=== PATIENT | female | born 2000 | race Two or more races ===

== ENCOUNTER 2025-08-27 23:37 | Emergency (ER) | payer MEDICAID, SELFPAY ==
[2025-08-27 23:38] VITALS: BMI 33.2
[2025-08-28] VITALS (8 sets, daily range): BP systolic 109–157; BP diastolic 66–83; PULSE 55–80; RESP 15–20; TEMP 36.7–37; O2SAT 97–100
--- NOTE | 2025-08-28 | XR_ITS ---
MRI abdomen, without contrast. MRCP Date and time of exam: 08/28/2025 11:14 a.m. CLINICAL HISTORY: Rule out common bile duct stone, epigastric pain nausea and vomiting for 4 days, enlarged common bile duct seen on recent ultrasound of the right upper quadrant Technique: Multiple axial and coronal images of the abdomen have been obtained with the Siemens 1.5T MRI scanner. Images obtained included T1 weighted transverse images, T2-weighted transverse images, T2-weighted transverse images fat-suppressed, T2 weighted haste fat suppressed transverse images, T1 weighted images, in and out of phase images, T2-weighted coronal images, breath hold, T2 weighted haze coronal images as well as T2 weighted coronal thick slab images, MRCP. Findings: Maximum diameter of the extrahepatic common bile duct on today's study measures 7.4 mm. By my measurement, the common bile duct on the previous ultrasound study only measured 7.8 mm, I believe that the technologist measured the common bile duct diameter obliquely suggesting a larger diameter. The gallbladder does appear mildly definitely enlarged, transverse diameter measures 5 cm there appears to be dependent layering biliary sludge in the gallbladder. In the distal common bile duct, there are 2 exquisitely tiny filling defects noted. These are suspicious for 2 tiny common bile duct stones. Left the MRI appearance of the liver and spleen and right and left kidneys and pancreas is otherwise normal. Likewise the spine and spinal canal appear essentially normal. IMPRESSION: 1. There is abnormal dilatation of the gallbladder, and there is a definite dependent layer of biliary sludge noted in the gallbladder. 2. Common bile duct by my measurement is 7.4 mm. 3 findings as noted above are suggestive of 2 probable very tiny stones in the distal common bile duct. I have marked these with arrows on numerous images
--- NOTE | 2025-08-28 00:54 | XR_ITS ---
Examination: Retroperitoneal ultrasound, complete Technique: Multiple high resolution grayscale images of the retroperitoneum obtained, including kidneys and bladder. Exam date and time: August 28, 2025, 0237 hours INDICATION: Right-sided flank pain abdominal pain beginning 4 days ago. FINDINGS: Right kidney 11.7 cm renal cortex 1.7 cm Minimal dilatation of the pelvicalyceal system Left kidney 11.3 cm in the cortex 2.0 cm No renal calculi No bladder mass or bladder calculi, bladder prevoid volume 99 cc IMPRESSION: Minimal dilatation left renal calyces, consider left urinary tract infection No renal calculi
--- NOTE | 2025-08-28 00:54 | XR_ITS ---
Examination: Abdomen sonogram, Limited Date and time of exam: August 28, 2025, 0230 hours INDICATIONS: Abdominal pain right-sided flank pain beginning 4 days ago. Technique: Real-time goldstein scale transabdominal sonographic images of the upper abdomen obtained. Findings: Gallbladder sludge No gallstones Normal gallbladder wall 0.2 cm Abnormal enlargement common bile duct 10 mm no definite stones Pancreatic head 2.4 cm Liver 18.5 cm smooth contour No focal liver lesions Normal hepatopetal portal venous flow Patent IVC IMPRESSION: Negative for cholelithiasis, negative for cholecystitis Abnormal enlargement common bile duct 10 mm, suggest MRCP follow-up
--- NOTE | 2025-08-28 00:55 | PD.EDRME ---
Rapid Medical Screening Exam RME Arrival date/time: 08/27/25 23:37 This is a case of 24-year-old female with no medical history came in in the emergency room due to bilateral upper abdominal pain radiating to both flank with nausea vomiting Chief Complaint: Abdominal Pain Time Seen by Provider: 08/27/25 23:49 Vital signs: Vital Signs Temperature 98.3 F 08/28/25 00:39 Pulse Rate 80 08/28/25 00:39 Respiratory Rate 20 08/28/25 00:39 Blood Pressure 157/79 H 08/28/25 00:39 Pulse Oximetry (%) 97 08/28/25 00:39 Oxygen Delivery Method Room Air 08/28/25 00:39 Exam: Both upper abdominal pain tenderness no guarding no rebound no rigidity Clinical Impression: Abdominal pain
[2025-08-28 01:27] LABS: Basophils # (Auto) 0.1 Thou/mm3 (0.0-0.2); Basophils % (Auto) 1 % (0-2.5); Eosinophils # (Auto) 0.0 Thou/mm3 (0.0-0.5); Eosinophils % (Auto) 1 % (0-10); Hematocrit 37.4 % (36.0-46.0); Hemoglobin 12.6 g/dL (12.0-16.0); Immature Granulocytes Auto 0.03 Thou/mm3 (0.00-0.00); Lymphocytes # (Auto) 1.2 Thou/mm3 (1.0-4.8); Lymphocytes % (Auto) 14 % (10-50); Mean Corpuscular HGB Conc 33.7 g/dl (31.0-37.0); Mean Corpuscular Hemoglobin 31.8 pg (25.0-35.0); Mean Corpuscular Volume 94 fL (80-100); Monocytes # (Auto) 0.7 Thou/mm3 (0.0-0.8); Monocytes % (Auto) 8 % (0-12); Neutrophils # (Auto) 6.4 Thou/mm3 (1.8-7.7); Neutrophils % (Auto) 76 % (37-80); Nucleated Red Blood Cell # 0.00 Thou/mm3 (0.00-0.00); Nucleated Red Blood Cell % 0 /100 WBC (0); Platelet Count 206 Thou/mm3 (140-440); RDW Standard Deviation 42.6 fL (36.4-46.3); Red Blood Count 3.96 Miln/mm3 (4.00-5.20); White Blood Count 8.4 Thou/mm3 (3.6-11.0)
[2025-08-28 01:49] LABS: Alanine Aminotransferase 240 U/L (10-49); Albumin, Serum 4.8 gm/dL (3.5-5.0); Albumin/Globulin Ratio 1.8 (1.2-2.2); Alkaline Phosphatase 230 U/L (46-116); Anion Gap 11 (7-16); Aspartate Amino Transferase 160 U/L (0-34); BUN/Creatinine Ratio 14 Ratio (12-20); Bilirubin,Total 1.8 mg/dL (0.3-1.2); Blood Urea Nitrogen 10 mg/dL (9-23); Calcium 9.0 mg/dL (8.3-10.6); Calcium (Corrected) 9.0 mg/dL (8.5-10.1); Carbon Dioxide 25.4 mMol/L (20.0-31.0); Chloride 105 mMol/L (98-107); Creatinine (Component) 0.7 mg/dL (0.6-1.3); Estimated Creatinine Clearance 154.9 mL/min (>60); Globulin 2.7 gm/dL (2.3-3.5); Glucose 111 mg/dL (74-106); Lipase 29 U/L (12-53); Osmolality,Calculated 281 (275-295); Potassium 3.8 mMol/L (3.4-5.1); Sodium 141 mMol/L (136-145); Total Protein 7.5 gm/dL (5.7-8.2); eGFR > 60 See Note
[2025-08-28 01:59] LABS: Collection Type, Urine Clean Catch
[2025-08-28 02:06] LABS: Amorphous Crystals,Urine Present (Absent); Bilirubin,Urine 1+ (Negative); Blood,Urine 1+ (Negative); Clarity,Urine Clear (Clear/Hazy); Color,Urine Yellow (Lt Yel-Yel); Glucose, Urine Negative (Negative); Ketones,Urine Negative (Negative); Leukocyte Esterase,Urine Negative (Negative); Nitrite,Urine Negative (Negative); PH,Urine 5.5 (5.0-7.0); Protein,Urine Trace (Neg - Trace); RBC,Urine 12 /hpf (0-3); Specific Gravity,Urine 1.031 (1.001-1.035); Squamous Epithelial Cell,Urine 1 /hpf (0-5); Urobilinogen,Urine 3.0 mg/dL (0.0-1.0); WBC,Urine 5 /hpf (0-5)
[2025-08-28 02:07] LABS: HCG Qualitative,Urine Negative
--- NOTE | 2025-08-28 03:26 | PRELIM_ITS ---
Gallbladder ultrasound. August 28, 2025 0230 hours Clinical history: abd pain Comparison: No prior study is available for comparison. Findings: The visualized liver is normal in echogenicity without mass or ductal dilatation. The main portal vein is patent and demonstrates hepatopetal flow. There is gallbladder sludge. No gallbladder calculus, wall thickening or pericholecystic fluid is identified. The common duct is dilated measuring 10 mm iin caliber. No evidence of stones at this time. No free fluid is demonstrated on the submitted images. The pancreas is unremarkable to the extent visualized. The inferior vena cava is patent to the extent visualized. Impression: Gallbladder sludge. No evidence of cholelithiasis or cholecystitis. Dilated common bile duct. Suggest clinical correlation and further evaluation with MRCP, if clinically indicated. Report Electronically Signed By: Mary Taylor 08/28/2025 3:26:08 AM [EST]
--- NOTE | 2025-08-28 03:36 | PRELIM_ITS ---
Renal/Retroperitoneal ultrasound. August 28, 2025 0236 hours Clinical history: falnk pain Technique: Duplex scan of the bilateral renal arterial and venous tree was performed utilizing 2D grayscale imaging, Doppler spectral analysis and color flow. Comparison: No prior study is available for comparison. Findings: Right: The right kidney measures 11.7 x 5.5 x 6.6 cm and demonstrates dilated renal pyramid. There is no renal calculus. The corticomedullary differentiation is maintained. Left: The left kidney measures 11.3 x 5.4 x 5.6 cm and is unremarkable. There is no hydronephrosis or renal calculus. The corticomedullary differentiation is maintained. The urinary bladder is unremarkable. Pre void volume is 99 cc Impression: Dilated right renal pyramid. Recommend clinical correlation. Report Electronically Signed By: Mary Taylor 08/28/2025 3:36:34 AM [EST]
[2025-08-28] MEDS: ONDANSETRON ODT 4 MG TABRAP PO (06:58)
[2025-08-28] MEDS: HYDROcodone/APAP 5/325 TABLET 1 TAB PO (06:58)
--- NOTE | 2025-08-28 10:38 | PC.NURSE ---
PT REPORTED HER ABDOMINAL PAIN HAS EASED DOWN CURRENTLY AFTER MEDICATION ADMINISTRATION. AWAITING MRI.
--- NOTE | 2025-08-28 11:19 | PD.EDADULT ---
ED General RME/HPI General Chief complaint: Abdominal Pain Stated complaint: UPPER ABDOMINAL PAIN Time Seen by Provider: 08/27/25 23:49 Arrival date/time: 08/27/25 23:37 CC: Bilateral flank pain nausea and vomiting HPI ongoing for the past 3 days. Denies chest pain shortness of breath or difficulty breathing no other prior history of similar events. RME / HPI RME / HPI narrative: 08/27/25 23:37 This is a case of 24-year-old female with no medical history came in in the emergency room due to bilateral upper abdominal pain radiating to both flank with nausea vomiting Exam: Both upper abdominal pain tenderness no guarding no rebound no rigidity Impression: Abdominal pain Related Data Home Medications ?Medication ?Instructions ?Recorded ?Confirmed vits [id number] fum 07/19/19 27 mg iron-folic acid 800 mcg tablet ( Vitamin) ursodiol 300 mg capsule 300 mg PO BID 07/19/19 07/20/19 Allergies Allergy/AdvReac Type Severity Reaction Status Date / Time No Known Allergies Allergy Verified 07/20/19 19:46 Review of Systems Review of Systems Narrative Review of Systems: GEN: No fever, no chills, no weight loss EYES: No discharge, no visual changes, no pain HEENT: No ear pain, no congestion, no sore throat PULM: No shortness of breath, no cough, no congestion CV: No chest pain, no dyspnea on exertion, no palpitations GI: No nausea, no vomiting, no diarrhea, + pain, no constipation : No frequency, no urgency, no dysuria MUSC/SKEL: No joint pain, no back pain SKIN: No rash PSYCH: No hallucinations, no depression HEME/LYMPH: No easy bleeding or bruising tendencies NEURO: No weakness, no headache ED Exam Narrative Physical exam: [General: Obese not in any acute distress Head normocephalic HEENT: Within acceptable limits Neck is supple nontender Chest equal chest rise nontender to palpation Respiratory: Clear to auscultation no wheezes crackles or rubs CV: Rate rhythm is regular no murmurs rubs or clicks Abdomen is distended secondary to body habitus soft nontender no masses positive bowel sounds all 4 quadrants Back: No CVA tenderness no spinous process tenderness from cervical spine thoracic and lumbar spine Skin: Intact no petechiae rash induration ulceration or crepitus Extremities: Moving all extremity against resistance cap refill less than 2 seconds neurosensory intact Neuro: Awake alert oriented x3 Glascow coma 15 no focal deficits] Course Course Course Narrative: Reassessment of the patient at 1153, the patient is resting comfortably after pain and nausea medications. She has returned from MRCP awaiting the results. The patient now understands what the processes be the CT and ultrasound of the gallbladder resulting in an MRCP. She is aware that if there is a stone that the patient will need to be transferred for ERCP. Repeat of the CMP shows the patient has had a significant increase in the T. bili from 1.8-2.7, transaminases have all increased also but marginally so. At this time I like to transfer the patient for ERCP. Patient accepted at [facility] Dr. Cameron Saini, excepting. Quality Measures none Orders Category Date Time Status MRI Screening NOW Care 08/28/25 06:18 Active Referral - Construction Supervisor Stat Cons 08/28/25 13:56 Active MR MRCP Stat Exams 08/28/25 Completed US gall bladder Stat Exams 08/28/25 00:54 Completed US renal BI Stat Exams 08/28/25 00:54 Completed CBC Stat Lab 08/28/25 01:17 Completed CMP [Comprehensive Metabolic Panel] Stat Lab 08/28/25 12:27 Completed Comprehensive Metabolic Panel Stat Lab 08/28/25 01:17 Completed HCG Qualitative,Urine Stat Lab 08/28/25 01:27 Completed Lipase Stat Lab 08/28/25 01:17 Completed Urinalysis Stat Lab 08/28/25 01:27 Completed HYDROcodone*/APAP 5/325 [Duarte 5/325] Med 08/28/25 06:17 Discontinued 1 tab PO X1 ONE Ondansetron Odt [Zofran Odt] Med 08/28/25 06:17 Discontinued 4 mg PO X1 ONE Sodium Chloride 0.9% 1000 ml [Ns] 1,000 ml Med 08/28/25 16:14 Active IV 125 mls/hr Vital Signs Vital signs: Vital Signs Temperature 98.3 F 08/28/25 00:39 Pulse Rate 80 08/28/25 00:39 Respiratory Rate 20 08/28/25 00:39 Blood Pressure 157/79 H 08/28/25 00:39 Pulse Oximetry (%) 97 08/28/25 00:39 Oxygen Delivery Method Room Air 08/28/25 00:39 Discharge Plan Plan Patient Disposition: [facility] Service Needed for Transfer: Gastroenterology Prescriptions/Referrals Prescriptions/Med Rec: No Action ursodiol 300 mg Capsule 300 mg PO BID Vitamin 27 mg iron- 800 mcg Tablet Referrals: Syed Mejía MD [Primary Care Provider, [facility]] - In 1 week Problem List Clinical Impression: Choledocholithiasis, Transaminitis Patient/Caregiver Discharge Instructions Print Language: Divehi Stand Alone Forms: Adrienne Award Info., Patient Portal Info Letter PA/SHELLFISH MEAT SEPARATOR OPERATOR Supervising Physician PA/SHELLFISH MEAT SEPARATOR OPERATOR Supervising Physician: Doe Cantor ENP [facility] Clinical Information Provided by: patient Medical Records reviewed [facility] Meds/Rx considered, not ordered None Labs/Rad/Tests considered, not ordered None Chronic Illness/Social Conditions Explain: Obesity Labs Labs: interpreted by me Lab(s) Interpretation(s): CBC shows no acute leukocytosis anemia thrombocytopenia CMP shows no acute electrolyte imbalances renal impairment T. bili of 1.8 AST of 160 ALT 1-40 alk phos of 230. Lipase of 29. Urine is negative for urinary tract infection. Imaging Imaging interpretation: interpreted by me Imaging Interpretation(s): Renal ultrasound shows renal calculi Gallbladder ultrasound shows a dilated CBD. Medication Administration(s) Medication Administration History Sodium Chloride (Ns) 1,000 mls @ 125 mls/hr IV .Q8H [facility] Stop: 09/27/25 16:13 Discontinued Medications Hydrocodone Bitart/Acetaminophen (Hydrocodone/Apap 5/325 Tablet) 1 tab PO X1 ONE Stop: 08/28/25 06:18 Last Admin: 08/28/25 06:58 Dose: 1 tab Documented By: Ondansetron HCl (Ondansetron Odt 4 Mg Tabrap) 4 mg PO X1 ONE; Protocol Stop: 08/28/25 06:18 Last Admin: 08/28/25 06:58 Dose: 4 mg Documented By:
[2025-08-28 13:01] LABS: Alanine Aminotransferase 264 U/L (10-49); Albumin, Serum 4.2 gm/dL (3.5-5.0); Albumin/Globulin Ratio 1.4 (1.2-2.2); Alkaline Phosphatase 239 U/L (46-116); Anion Gap 10 (7-16); Aspartate Amino Transferase 176 U/L (0-34); BUN/Creatinine Ratio 10 Ratio (12-20); Bilirubin,Total 2.7 mg/dL (0.3-1.2); Blood Urea Nitrogen 6 mg/dL (9-23); Calcium 9.1 mg/dL (8.3-10.6); Calcium (Corrected) 9.1 mg/dL (8.5-10.1); Carbon Dioxide 25.6 mMol/L (20.0-31.0); Chloride 108 mMol/L (98-107); Creatinine (Component) 0.6 mg/dL (0.6-1.3); Estimated Creatinine Clearance 180.7 mL/min (>60); Globulin 3.0 gm/dL (2.3-3.5); Glucose 82 mg/dL (74-106); Osmolality,Calculated 283 (275-295); Potassium 3.8 mMol/L (3.4-5.1); Sodium 144 mMol/L (136-145); Total Protein 7.2 gm/dL (5.7-8.2); eGFR > 60 See Note
--- NOTE | 2025-08-28 14:51 | PC.CC ---
Addendum entered by Arlet Mejía RN 08/28/25 17:50: 1541 Faxed Transfer request packet to [facility]. 1633 Called [facility] and spoke with Tai, transferred call to Doe Cantor. At 1639 Tai informed Doe that pt was accepted ED to ED with Dr. Saini to accept. Tai gave report number and informed TC that Dr. Saini is requesting stat transfer. Informed Doe that Dr. Saini is requesting stat transfer and Doe informed feature writer that the pt is stable and does not require stat transfer. Transfer paperwork completed with signitures and 1 CD, and given to [facility] ED charge nurse. At 1731 called [facility] and spoke with Sarmad. Informed him Dr. Saini is requesting stat transfer but Doe informed TC nurse that pt is stable. ETA received for 194 with notation pt is ready per Sarmad from [facility]. Original Note: Received transfer request from Doe Cantor. Called [facility] and spoke with Monica. Monica took down information and will review and call back. At 1441 Called [facility] and spoke with Kayley, brief information given prior to transferring the call to Doe Cantor. Kayley will review information sent and get back to us. At 1453 [facility] declined due to critical capacity.
[2025-08-28] MEDS: SODIUM CHLORIDE 0.9% 1000 ML 1,000 ML 125 ML IV (17:22)
--- NOTE | 2025-08-28 18:38 | PC.NURSE ---
Report called to [facility] spoke with Karolina MOORE from ED. Pt is aware of transfer to [facility].
--- NOTE | 2025-08-28 19:40 | PC.NURSE ---
this nurse gave report to ems who arrived to take pt to [facility]. marco rajput with dcing ns. no new orders at this time. pt stable and not in distress.
== END 2025-08-28 19:42 | disposition short-term general hospital (02) ==
PROVIDERS: Nurse Practitioner Family; Registered Nurse General Practice; Emergency Provider Emergency Medicine; PCP Family Medicine
DX: K80.50 Calculus of bile duct without cholangitis or cholecystitis without obstruction (principal); R74.01 Elevation of levels of liver transaminase levels; R10.A1 Flank pain, right side; Z75.1 Person awaiting admission to adequate facility elsewhere
CPT/HCPCS: 36415; 74181; 76705; 76770; 80053; 81001; 81025; 83690; 85025; 99284; J7030; Q0162; A9270